=== PATIENT | female | born 1975 ===

== ENCOUNTER 2020-06-08 14:58 | Outpatient (CLI) | payer OTHER | END 2020-06-08 15:10 | disposition home or self-care (01) | LOC: RAD 14:58 | PROVIDERS: ATTEND Orthopaedic Surgery | DX: M25.561 Pain in right knee (principal); M25.562 Pain in left knee ==

== ENCOUNTER 2021-03-24 16:23 | Emergency (ER) | payer OTHER ==
[~2021-03-24] VITALS: Ht 162.6 cm; Wt 60.3 kg
[2021-03-24] MEDS ORDERED: IPRAT-ALBUT 0.5-3 ML IH (18:58)
[2021-03-24] MEDS ORDERED: TUSNEL LIQUID178 ML PO (18:58)
== END 2021-03-24 19:39 | disposition home or self-care (01) ==
LOC: ER 16:23
DX: R05.8 Other specified cough (principal); Z03.818 Encounter for observation for suspected exposure to other biological agents ruled out; R06.02 Shortness of breath